=== PATIENT | female | born 2005 ===

== ENCOUNTER 2024-08-22 15:31 | Outpatient (AMB) | payer OTHER, SELFPAY ==
--- NOTE | 2024-08-22 15:36 | A.OFFPC_ITS ---
Vital Signs 08/22/24 15:42 Height 5 ft 3.19 in Weight 128 lb BMI 22.5 BP 88/50 L Blood Pressure Location Rt brachial Position Sitting Respiration 12 Pulse 60 Pulse Source Pulse Oximeter Pulse Oximetry (%) 98 Oxygen Delivery Method Room Air Intake Visit Reasons: est care Intake Note: New patient visit Allergies No Known Allergies Allergy (Verified 08/22/24 15:36) Tobacco use date assessed: 08/22/24 Dental Screening Dental Screen Date: 08/22/24 Did you have a dental visit in the last 12 months?: No Did you have a dental problem in the last 6 months where you did not have access to dental care?: No Was dental information given to patient?: Patient declined HPI HPI Comments History of Present Illness Details This is a 19-year-old female with a past medical history of mild intermittent asthma presenting to [facility]. 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 Records transfer pending. The patient tested positive for chlamydia at her school. She is on doxycycline. She is compliant with the medication. She requests to be retested after she completes the medication. She is agreeable to fasting labs. She plays basketball and volleyball. She has somewhat of a picky eater so I have recommended she start taking a multivitamin. We also discussed different ways to incorporate fruits and vegetables into her diet. Her asthma has not bothered her for awhile, but she would like a refill on her albuterol inhaler to keep on hand just in case. Influenza vaccine administered today. She is unsure about last tetanus vaccine so we are awaiting her transfer records. 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 [facility]. She has mild astigmatism and was prescribed glasses for it. ROS: Constitutional: No unexplained weight loss, fever, chills, fatigue or night sweats. Eyes: No vision changes, blurry vision, double vision, eye pain, eye redness, eye discharge. ENT: No hearing loss, sneezing, congestion, runny nose or sore throat. Respiratory: No shortness of breath, cough or sputum production. Cardiovascular: No chest pain, chest pressure or chest discomfort. No palpitations or pedal edema. Gastrointestinal: No anorexia, nausea, vomiting or diarrhea. No abdominal pain or blood in stool. Genitourinary: No dysuria, hematuria, urinary frequency. Neurologic: No headache, dizziness, syncope, unilateral weakness, ataxia, numbness or tingling in the extremities. Musculoskeletal: No muscle pain, back pain, joint pain or swelling. Hematologic/Lymphatics: No bleeding or bruising. No painful lymph nodes. Skin: No rash or itching. Endocrine: No cold or heat intolerance. No polyuria or polydipsia. Psychiatric: No depression or anxiety. No SI/HI. Physical exam: Constitutional: Alert, in no distress. Head: Normocephalic. Eyes: Pupils are equal, round and reactive to light. Extraocular muscles intact. Ear, Nose and Throat: Canals clear. TMs normal. Normal nasal mucosa. No nasal discharge. No oral lesions. Neck: Supple, Full range of motion. No lymphadenopathy. No palpable thyroid masses. Respiratory: Clear to auscultation. Cardiovascular: S1 S2 regular. No murmurs. . Gastrointestinal: Abdomen soft, non-tender, non-distended. Normal bowel sounds. No palpable masses. Genitourinary: No costovertebral angle tenderness. Neurologic: No focal neurological deficits. Symmetric patellar reflexes. Moves all extremities spontaneously. Sensation intact bilaterally. Skin: No rashes or lesions. Musculoskeletal: No gross deformities. Normal range of motion. Extremities: Warm and well perfused. No clubbing, cyanosis or edema. 3+ peripheral pulses bilaterally. Psychiatric: Normal mood and affect [facility] Medical History (Updated 08/22/24 @ 17:14 by MALIK Read) History of chlamydia Mild intermittent asthma Routine physical examination Surgical History (Updated 08/22/24 @ 15:40 by Sowmya Vaughan CMA) No pertinent past surgical history Family History (Updated 08/22/24 @ 15:41 by Sowmya Vaughan CMA) Father Depression Obesity Mother Obesity HTN (hypertension) Diabetes Other FH: mental illness Social History (Updated 08/22/24 @ 15:42 by Sowmya Vaughan CMA) Housing: Apartment Alcohol intake: current Patient Tobacco Use Status: Never used Tobacco e-Cigarette/Vaping Use: Never Used Second Hand Smoke Exposure: No Substance Use Type: Marijuana service: No Current occupational status: employed and student 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 1. Little interest or pleasure in doing things: more than half the days 2. Feeling down, depressed, or hopeless: several days 3. Trouble falling or staying asleep, or sleeping too much: several days 4. Feeling tired or having little energy: not at all 5. Poor appetite or overeating: several days 6. Feeling bad about yourself - or that you are a failure or have let yourself or your family down: not at all 7. Trouble concentrating on things, such as reading the newspaper or watching television: not at all 8. Moving or speaking so slowly that other people could have noticed. Or the opposite - being so fidgety or restless that you have been moving around a lot more than usual: not at all 9. Thoughts that you would be better off or of hurting yourself in some way: not at all Total score: 5 Depression Screening Interpretation: Positive Depression Screening Done: Yes 05789 - PHQ-9 Billing: Yes Source: Developed by Drs. Mono Coto, Flaca Cheng, Oniel Becker and colleagues, with an educational mawxell from [employer]. Thrive Questionnaire Date Thrive assessed: 08/22/24 I am a: Patient What is your living situation today?: I have a steady place to live Within the past 12 months, did the food you bought not last and you didn't have the money to get more?: I choose not to answer this question Within the past 12 months, did you worry whether your food would run out before you got money to buy more?: I choose not to answer this question Do you have trouble paying for medicines?: I choose not to answer this question Do you have trouble getting transportation to medical appointments?: No Do you have trouble paying your heating and electricity bill?: No Do you have trouble taking care of your child, family member or friend?: No Do you have trouble with day-to-day activities such as bathing, preparing meals, shopping, managing finances, etc.?: No Are you currently unemployed and looking for a job?: I choose not to answer this question Are you interested in more education?: Yes Please select the resources that you would like help with: Housing/Care Home, Food, Job search/training and Education Currently or been in a relationship where the following occur: No concerns reported THRIVE Score: 0 AUDIT C Alcohol Use Questionnaire (AUDIT-C) 1. How often do you have a drink containing alcohol?: Monthly or less 2. How many drinks containing alcohol do you have on a typical day when you are drinking?: 3 or 4 3. How often do you have six or more drinks on one occasion?: Never Total Score: 2 TAYA-7 AMB Questionnaire TAYA-7 Date TAYA - 7 assessed: 08/22/24 Feeling nervous, anxious, or on edge: 1 = Several days Not being able to stop or control worryin = Not at all Worrying too much about different things: 0 = Not at all Trouble relaxin = Not at all Being so restless that it is hard to sit still: 0 = Not at all Becoming easily annoyed or irritable: 0 = Not at all Feeling afraid as if something awful might happen: 0 = Not at all Total TAYA-7 score (0-4 normal; 5-9 mild; 10-14 moderate; 15-21 severe): 1 Source: Developed by Drs. Mono Coto, Flaca Cheng, Oniel Becker and colleagues, with an educational maxwell from [employer]. TAYA-7 Assessment Billing TAYA-7 Assessment Tool: TAYA-7 Assessment 86430 Physical exam (Primary Care) Vital Signs: Last Vital Signs Pulse 60 08/22/24 15:42 Resp 12 08/22/24 15:42 BP 88/50 L 08/22/24 15:42 Pulse Ox 98 08/22/24 15:42 Oxygen Delivery Method Room Air 08/22/24 15:42 BMI result Body Mass Index 22.5 Tobacco/Smoking Status: Tobacco use Status Tobacco use date assessed 08/22/24 08/22/24 15:44 Patient Tobacco Use Status Never used Tobacco 08/22/24 15:44 e-Cigarette/Vaping Use Never Used 08/22/24 15:44 PHQ-9: PHQ-9 Score PHQ-9: Total score 5 08/22/24 16:42 Depression Screening Interpretation: Positive Thrive Assessment: Date of Thrive Assessment Date Thrive assessed 08/22/24 08/22/24 15:44 Currently or been in a relationship where the following occur: No concerns reported Office Procedures Flu Questionnaire Does the patient have a severe egg allergy?: No Does the patient have severe life threatening allergies?: No Does the patient have a fever or illness today?: No Has the patient ever had Guillain-Randolph Syndrome?: No Has the patient ever had any past reaction to a flu shot?: No Immunizations Fluarix Triv 3633-0041 (PF) 45 mcg (15 mcg x 3)/0.5 mL IM syringe Performing Provider: MALIK Read Performing Location: [facility] Administered by: Sowmya Vaughan CMA on 08/22/24 16:40 Dose Route Admin Location Dispensed Lot Number Expiration Date NDC Gatekeeper 0.5 mL IM Left Deltoid 0.5 mL [id number] 01/16/25 34513-067-40 [employer] VIS Given Date VIS Provided VIS Publication Date 08/22/24 Single Vaccine 21 Eligibility Eligibility Date Funding Source Not [facility] Eligible 08/22/24 Private Coding Level of Care Code New Pt Prev Care 18-39yr(46224 Diagnoses Routine physical examination Z00.00 Mild intermittent asthma J45.20 History of chlamydia Z86.19 Additional Codes TAYA-7 Assessment Billing - TAYA-7 Assessment Tool: TAYA-7 Assessment 83575 ([id number]) PHQ-9 - 71042 - PHQ-9 Billing: Yes ([id number]) Assessment & Plan Assessment & Plan (1) Routine physical examination: Code(s): Z00.00 - Encounter for general adult medical examination without abnormal findings Category: Medical Plan: Patient is seen today for a routine physical. As part of this visit we reviewed the following issues, which are considered and essential part of preventative health in this age group: - Breast Cancer screening - Annual Moulder Operator exam - Blood pressure screening - Cholesterol screening - Osteoporosis prevention including calcium/vitamin D intake, weight bearing exercise & smoking cessation - Nutritional and exercise counseling - Counseling of injury prevention including fire prevention, smoke alarms and seat belt usage - Screening for depression - Prevention of and/or testing for infectious diseases - Education about skin cancer - Recommendations about immunizations - Recommendation of an eye exam - Screening for substance abuse (2) Mild intermittent asthma: Code(s): J45.20 - Mild intermittent asthma, uncomplicated Category: Medical Plan: Albuterol 2 puffs every 4 hours as needed for coughing, wheezing and shortness of breath. (3) History of chlamydia: Code(s): Z86.19 - Personal history of other infectious and parasitic diseases Category: Medical Plan: Complete treatment with doxycycline. Ordered repeat testing. She is agreeable to testing for additional STIs including HIV screening. Plan Follow up in 1 year for annual physical exam. Orders: Orders Influenza [id number] Immunization Today Z23 - Encounter for immunization Complete Blood Count no Diff Today J45.20 - Mild intermittent asthma, uncomplicated, Z00.00 - Encounter for general adult medical examination without abnormal findings Lipid Panel Today E78.5 - Hyperlipidemia, unspecified, J45.20 - Mild intermittent asthma, uncomplicated, Z00.00 - Encounter for general adult medical examination without abnormal findings Hepatitis C Antibody Today J45.20 - Mild intermittent asthma, uncomplicated, Z00.00 - Encounter for general adult medical examination without abnormal findings, Z20.2 - Contact with and (suspected) exposure to infections with a predominantly sexual mode of transmission Comprehensive Met. Panel Today J45.20 - Mild intermittent asthma, uncomplicated, Z00.00 - Encounter for general adult medical examination without abnormal findings HIV Ab/Ag Today J45.20 - Mild intermittent asthma, uncomplicated, Z00.00 - Encounter for general adult medical examination without abnormal findings, Z20.2 - Contact with and (suspected) exposure to infections with a predominantly sexual mode of transmission CT NG by PCR Today J45.20 - Mild intermittent asthma, uncomplicated, Z00.00 - Encounter for general adult medical examination without abnormal findings, Z20.2 - Contact with and (suspected) exposure to infections with a predominantly sexual mode of transmission Syphilis Screen Today J45.20 - Mild intermittent asthma, uncomplicated, Z00.00 - Encounter for general adult medical examination without abnormal findings, Z20.2 - Contact with and (suspected) exposure to infections with a predominantly sexual mode of transmission Medications: New albuterol sulfate 90 mcg/actuation 2 inhalations inhalation .every 4 hours 30 days PRN 8.5 grams 1RF shortness of breath or wheezing
[2024-08-22 15:42] VITALS: BP 88/50; PULSE 60; RESP 12; O2SAT 98; BMI 22.5
== END 2024-08-22 16:40 | disposition home or self-care (01) ==
PROVIDERS: PCP Physician Assistant Medical; Visit Provider Physician Assistant Medical
DX: Z00.00 Encounter for general adult medical examination without abnormal findings (principal); J45.20 Mild intermittent asthma, uncomplicated; Z86.19 Personal history of other infectious and parasitic diseases; Z23 Encounter for immunization

== ENCOUNTER → 2024-08-22 15:31 | Outpatient (BNVA) | payer OTHER, SELFPAY | PROVIDERS: PCP Physician Assistant Medical; Visit Provider Physician Assistant Medical | DX: Z00.00 Encounter for general adult medical examination without abnormal findings (principal); Z23 Encounter for immunization; J45.20 Mild intermittent asthma, uncomplicated; Z86.19 Personal history of other infectious and parasitic diseases | CPT/HCPCS: 90471; 90656; 96127; 99385 ==

== ENCOUNTER 2024-09-20 15:11 | Outpatient (REF) | payer OTHER, SELFPAY ==
[2024-09-20 18:53] LABS: Alanine Aminotransferase 18 U/L (0-31); Albumin Level 4.5 g/dL (3.5-5.0); Alkaline Phosphatase 74 U/L (39-117); Anion Gap 11 (12-20); Aspartate Amino Transferase 26 U/L (5-31); Bilirubin Total 0.7 mg/dL (0.0-1.0); Blood Urea Nitrogen 8 mg/dL (9-16); Calcium 8.9 mg/dL (8.4-10.2); Carbon Dioxide 26 mmol/L (22-29); Chloride 107 mmol/L (96-108); Cholesterol 133 mg/dL (<200); Estimated Glomerular Filt Rate > 60; Glucose Random 89 mg/dL (60-115); HDL Cholesterol 47 mg/dL (>40); LDL Cholesterol Calculated 76 mg/dL (<100); Potassium 3.5 mmol/L (3.3-5.1); Sodium 140 mmol/L (135-145); Total Protein 7.7 g/dL (6.5-8.0); Triglycerides 52 mg/dL (<150)
[2024-09-20 18:55] LABS: Hematocrit 39.5 % (37.0-47.0); Hemoglobin 13.2 g/dl (12.0-16.0); Mean Corpuscular HGB Conc 33.4 g/dl (31.0-35.0); Mean Corpuscular Hemoglobin 30.3 pg (27.0-33.0); Mean Corpuscular Volume 90.8 fL (80.0-98.0); Mean Platelet Volume 11.4 fL (9.4-12.3); Platelet Count 228 X10*3/uL (160-400); Red Blood Count 4.35 X10*6/uL (4.20-5.50); Red Cell Distribution Width 12.8 % (11.0-16.0); White Blood Count 4.8 X10*3/uL (4.8-10.8)
[2024-09-21 08:09] LABS: Syphilis Screen Nonreactive (Nonreactive)
[2024-09-21 08:30] LABS: HIV AB/AG Nonreactive (Nonreactive); HIV Num 1 0.06 S/CO (0.00-0.99); ~HepC Num1 0.14 S/CO (0.00-0.79); ~Hepatitis C Antibody Nonreactive (Nonreactive)
== END 2024-09-20 15:12 | disposition home or self-care (01) ==
LOC: HO.WFDLDS 15:11
PROVIDERS: Visit Provider Physician Assistant Medical
DX: Z00.00 Encounter for general adult medical examination without abnormal findings (principal); J45.20 Mild intermittent asthma, uncomplicated; Z20.2 Contact with and (suspected) exposure to infections with a predominantly sexual mode of transmission; E78.5 Hyperlipidemia, unspecified
CPT/HCPCS: 36415; 80053; 80061; 85027; 86780; 86803; 87389

== ENCOUNTER 2024-10-10 13:41 | Outpatient (AMB) | payer OTHER, SELFPAY ==
--- NOTE | 2024-10-10 13:49 | MHC.PC.OV ---
Vital Signs 10/10/24 13:51 Height 5 ft 3.19 in Weight 130 lb BMI 22.9 BP 116/76 Blood Pressure Location Rt brachial Position Sitting Respiration 12 Pulse 63 Pulse Source Pulse Oximeter Temp 98.7 F Temp Source Oral Pulse Oximetry (%) 98 Oxygen Delivery Method Room Air Intake Visit Reasons: UPPER LIP ISSUE Intake Note: Upper lip issue, started about a week ago. Second Cook And Baker Required: No Allergies No Known Allergies Allergy (Verified 10/10/24 13:51) Tobacco use date assessed: 08/22/24 Dental Screening Dental Screen Date: 08/22/24 HPI HPI Comments History of Present Illness Details This is a 19-year-old female presenting for a lip problem. A week ago patient developed a tingly, stinging blister above her left lip. 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 She found out the results this past Thursday. Her partner recently also had a cold sore. [facility] said they would send medication to her pharmacy, but she never received it which prompted her to come here. She had testing for other STIs which were negative including testing for HSV 2. Patient got I smaller blister next to this yesterday. No fevers or chills. Denies genital lesions. ROS: Constitutional: No fevers or chills ENT: No hearing loss, sneezing, congestion, runny nose or sore throat. Genitourinary: No dysuria, hematuria, urinary frequency. No genital lesions. Skin: See HPI Physical exam: Constitutional: Alert, in no distress. Mouth/ Throat: No lesions within the mouth or throat. There is a crusty, vesicular, erythematous lesion above the left lip involving the vermilion border Neck: Supple, Full range of motion. No lymphadenopathy. [facility] Medical History (Updated 10/10/24 @ 14:16 by MALIK Read) HSV-1 infection History of chlamydia Mild intermittent asthma Routine physical examination Surgical History (Updated 08/22/24 @ 15:40 by Sowmya Vaughan CMA) No pertinent past surgical history Family History Father Depression Obesity Mother Obesity HTN (hypertension) Diabetes Other FH: mental illness Social History (Updated 08/22/24 @ 15:42 by Sowmya Vaughan CMA) Housing: Apartment Alcohol intake: current Patient Tobacco Use Status: Never used Tobacco e-Cigarette/Vaping Use: Never Used Second Hand Smoke Exposure: No Substance Use Type: Marijuana service: No Current occupational status: employed and student 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 [employer] Current occupational exposures/hazards: No Cognitive needs: No Hearing needs: No Vision needs: No Questionnaire Thrive Questionnaire Date Thrive assessed: 08/22/24 I am a: Patient What is your living situation today?: I have a steady place to live Within the past 12 months, did the food you bought not last and you didn't have the money to get more?: I choose not to answer this question Within the past 12 months, did you worry whether your food would run out before you got money to buy more?: I choose not to answer this question Do you have trouble paying for medicines?: I choose not to answer this question Do you have trouble getting transportation to medical appointments?: No Do you have trouble paying your heating and electricity bill?: No Do you have trouble taking care of your child, family member or friend?: No Do you have trouble with day-to-day activities such as bathing, preparing meals, shopping, managing finances, etc.?: No Are you currently unemployed and looking for a job?: I choose not to answer this question Are you interested in more education?: Yes Currently or been in a relationship where the following occur: No concerns reported THRIVE Score: 0 TAYA-7 AMB Questionnaire TAYA-7 Date TAYA - 7 assessed: 08/22/24 Source: Developed by Drs. Mono Coto, Flaca Cheng, Oniel Becker and colleagues, with an educational maxwell from [employer]. Physical exam (Primary Care) Tobacco/Smoking Status: Tobacco use Status Tobacco use date assessed 08/22/24 08/22/24 15:44 Patient Tobacco Use Status Never used Tobacco 08/22/24 15:44 e-Cigarette/Vaping Use Never Used 08/22/24 15:44 Thrive Assessment: Date of Thrive Assessment Date Thrive assessed 08/22/24 08/22/24 15:44 Currently or been in a relationship where the following occur: No concerns reported Coding Level of Care Code Est Pt Level 3 (15738) Complex EM visit Add On G2211 Diagnoses HSV-1 infection B00.9 Assessment & Plan Assessment & Plan (1) HSV-1 infection: Code(s): B00.9 - Herpesviral infection, unspecified Category: Medical Plan Patient educated on herpes simplex virus, transmission and outbreaks. Prescribed Valtrex. Advised patient I will put additional doses into the bottle to use for recurrent outbreaks. If she has frequent outbreaks we can also prescribed Valtrex for suppression. Reviewed management of HSV 1 and prevention of transmission. She will call if she has any questions or concerns. Medications: New valacyclovir (Valtrex) 2,000 mg (2 x 1 gram) PO Q12H 1 day PRN 20 tabs 0RF cold sore
[2024-10-10 13:51] VITALS: BP 116/76; PULSE 63; RESP 12; TEMP 37.1; O2SAT 98; BMI 22.9
== END 2024-10-10 14:20 | disposition home or self-care (01) ==
LOC: HO.HMCFM 13:41
PROVIDERS: PCP Physician Assistant Medical; Visit Provider Physician Assistant Medical
DX: B00.9 Herpesviral infection, unspecified (principal)

== ENCOUNTER → 2024-10-10 13:41 | Outpatient (BNVA) | payer OTHER, SELFPAY | PROVIDERS: PCP Physician Assistant Medical; Visit Provider Physician Assistant Medical | DX: B00.9 Herpesviral infection, unspecified (principal) | CPT/HCPCS: 99212 ==

== ENCOUNTER 2024-12-01 09:03 | Outpatient (REF) | payer OTHER, SELFPAY ==
[2024-12-01 14:20] LABS: MANUAL DIFF FLAG NO
[2024-12-01 14:29] LABS: Basophils Percent Auto 0.4 % (0-2); Eosinophils Absolute Auto 0.1 X10*3/uL (0.0-0.4); Eosinophils Percent Auto 1.7 % (0-4); Hematocrit 38.8 % (37.0-47.0); Imm Gran Abs Auto 0.01 X10*3/uL (0.00-0.03); Imm Gran Pct Auto 0.2 % (0.0-0.4); Lymphocytes Absolute Auto 1.1 X10*3/uL (1.2-4.9); Lymphocytes Percent Auto 22.8 % (20-40); Mean Corpuscular HGB Conc 33.5 g/dl (31.0-35.0); Mean Corpuscular Volume 89.6 fL (80.0-98.0); Mean Platelet Volume 11.8 fL (9.4-12.3); Monocytes Absolute Auto 0.5 X10*3/uL (0.1-1.2); Monocytes Percent Auto 10.9 % (2-11); Neutrophils Absolute Auto 2.9 x10*3/uL (2.0-8.3); Platelet Count 195 X10*3/uL (160-400); Red Blood Count 4.33 X10*6/uL (4.20-5.50); Red Cell Distribution Width 13.3 % (11.0-16.0); White Blood Count 4.6 X10*3/uL (4.8-10.8)
[2024-12-01 14:56] LABS: Syphilis Screen Nonreactive (Nonreactive)
[2024-12-01 14:59] LABS: HCG Quantitative < 2 mIU/mL
[2024-12-02 08:46] LABS: HIV AB/AG Nonreactive (Nonreactive); HIV Num 1 0.08 S/CO (0.00-0.99); ~HepC Num1 0.11 S/CO (0.00-0.79); ~Hepatitis C Antibody Nonreactive (Nonreactive)
== END 2024-12-01 09:04 | disposition home or self-care (01) ==
LOC: HO.LAB 09:03
PROVIDERS: PCP Physician Assistant Medical; Visit Provider Physician Assistant Medical
DX: N92.0 Excessive and frequent menstruation with regular cycle (principal); R10.2 Pelvic and perineal pain; R39.9 Unspecified symptoms and signs involving the genitourinary system; Z20.2 Contact with and (suspected) exposure to infections with a predominantly sexual mode of transmission
CPT/HCPCS: 36415; 81002; 81025; 84702; 85025; 86780; 86803; 87086; 87389; 96127; 99212

== ENCOUNTER 2024-12-01 09:03 | Outpatient (AMB) | payer OTHER, SELFPAY ==
--- NOTE | 2024-12-01 09:07 | A.OFFPC_ITS ---
Vital Signs 12/01/24 09:14 Height 5 ft 4 in Weight 125 lb 4 oz BMI 21.5 BP 102/68 Blood Pressure Location Lt brachial Position Sitting Pulse 61 Pulse Source Pulse Oximeter Temp 98.4 F Temp Source Temporal Artery Scan Pulse Oximetry (%) 97 Oxygen Delivery Method Room Air Intake Visit Reasons: abdominal pain Intake Note: Dionisio presents in the office today for abdominal pain. Allergies No Known Allergies Allergy (Verified 12/01/24 09:09) Tobacco use date assessed: 12/01/24 Dental Screening Dental Screen Date: 12/01/24 Did you have a dental visit in the last 12 months?: No Did you have a dental problem in the last 6 months where you did not have access to dental care?: No Was dental information given to patient?: Patient has dentist HPI HPI Comments History of Present Illness Details 19-year-old female with past medical his tory of HSV, chlamydia, asthma presents for concerns about possible . The last day of her period ended 11/15/2024. It was shorter than usual at 4 days, and she says the bleeding was a little heavier. She had pinkish discharge on 11/16/2024 which was unusual for her. She also has intermittent pelvic cramping which is present today. She says it is mild. No vomiting, fevers, chills, nausea, dizziness or weakness. Last episode of unprotected intercourse was 11/23/2024. Patient says she is sexually active with 1 person. She has a cribber, but she has not reached out to them about the symptoms yet. She took home tests which were negative. Her depression screening is positive. Patient says she had stress due to the situation with her partner. She has started seeing a therapist. ROS: Constitutional: No unexplained weight loss, fever, chills or night sweats. Respiratory: No shortness of breath Cardiovascular: No chest pain Gastrointestinal: No anorexia, nausea, vomiting or diarrhea. No abdominal pain or blood in stool. : No dysuria, hematuria, urinary frequency, flank pain, vaginal discharge or itching. See HPI. Neurologic: No headache, dizziness, syncope Skin: No rash Physical exam: Constitutional: Alert, in no distress. Neck: Supple, Full range of motion. No lymphadenopathy. Respiratory: Clear to auscultation. Cardiovascular: S1 S2 regular. No murmurs. Gastrointestinal: Abdomen soft, non-tender, non-distended. Normal bowel sounds. No palpable masses. Genitourinary: No costovertebral angle tenderness. Extremities: Warm and well perfused. No clubbing, cyanosis or edema. Psychiatric: Normal mood and affect [facility] Medical History (Updated 12/01/24 @ 09:29 by MALIK Read) Pelvic cramping Spotting HSV-1 infection History of chlamydia Mild intermittent asthma Routine physical examination Surgical History No pertinent past surgical history Family History Father Depression Obesity Mother Obesity HTN (hypertension) Diabetes Other FH: mental illness Social History (Updated 12/01/24 @ 09:09 by Rose Marie Silva MA) Housing: Apartment Alcohol intake: current Patient Tobacco Use Status: Never used Tobacco e-Cigarette/Vaping Use: Never Used Second Hand Smoke Exposure: No Substance Use Type: Marijuana service: No Current occupational status: employed and student 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 Current occupational exposures/hazards: No Cognitive needs: No Hearing needs: No Vision needs: No Questionnaire PHQ-9 Over the last 2 weeks, how often have you been bothered by any of the following problems? 1. Little interest or pleasure in doing things: several days 2. Feeling down, depressed, or hopeless: not at all 3. Trouble falling or staying asleep, or sleeping too much: several days 4. Feeling tired or having little energy: several days 5. Poor appetite or overeating: not at all 6. Feeling bad about yourself - or that you are a failure or have let yourself or your family down: not at all 7. Trouble concentrating on things, such as reading the newspaper or watching television: nearly every day 8. Moving or speaking so slowly that other people could have noticed. Or the opposite - being so fidgety or restless that you have been moving around a lot m ore than usual: not at all 9. Thoughts that you would be better off or of hurting yourself in some way: not at all Total score: 6 Depression Screening Interpretation: Positive Depression Screening Done: Yes 22023 - PHQ-9 Billing: Yes Source: Developed by Drs. Mono Coto, Flaca Cheng, Oniel Becker and colleagues, with an educational maxwell from [employer]. Thrive Questionnaire Date Thrive assessed: 12/01/24 I am a: Patient What is your living situation today?: I have a steady place to live Within the past 12 months, did the food you bought not last and you didn't have the money to get more?: I choose not to answer this question Within the past 12 months, did you worry whether your food would run out before you got money to buy more?: I choose not to answer this question Do you have trouble paying for medicines?: I choose not to answer this question Do you have trouble getting transportation to medical appointments?: No Do you have trouble paying your heating and electricity bill?: No Do you have trouble taking care of your child, family member or friend?: No Do you have trouble with day-to-day activities such as bathing, preparing meals, shopping, managing finances, etc.?: No Are you currently unemployed and looking for a job?: I choose not to answer this question Are you interested in more education?: Yes Currently or been in a relationship where the following occur: No concerns reported THRIVE Score: 0 AUDIT C Alcohol Use Questionnaire (AUDIT-C) 1. How often do you have a drink containing alcohol?: Monthly or less 2. How many drinks containing alcohol do you have on a typical day when you are drinking?: 3 or 4 3. How often do you have six or more drinks on one occasion?: Never Total Score: 2 Score Reviewed/Action Taken: No TAYA-7 AMB Questionnaire TAYA-7 Date TAYA - 7 assessed: 12/01/24 Feeling nervous, anxious, or on edge: 1 = Several days Not being able to stop or control worryin = Not at all Worrying too much about different things: 3 = Nearly every day Trouble relaxin = Several days Being so restless that it is hard to sit still: 0 = Not at all Becoming easily annoyed or irritable: 3 = Nearly every day Feeling afraid as if something awful might happen: 0 = Not at all Total TAYA-7 score (0-4 normal; 5-9 mild; 10-14 moderate; 15-21 severe): 8 Source: Developed by Drs. Mono Coto, Flaca Cheng, Oniel Becker and colleagues, with an educational maxwell from [employer]. TAYA-7 Assessment Billing TAYA-7 Assessment Tool: TAYA-7 Assessment 52277 Physical exam (Primary Care) Vital Signs: Last Vital Signs Temp 98.4 F 12/01/24 09:14 Pulse 61 12/01/24 09:14 BP 102/68 12/01/24 09:14 Pulse Ox 97 12/01/24 09:14 Oxygen Delivery Method Room Air 12/01/24 09:14 BMI result Body Mass Index 21.5 Tobacco/Smoking Status: Tobacco use Status Tobacco use date assessed 12/01/24 12/01/24 09:10 Patient Tobacco Use Status Never used Tobacco 12/01/24 09:10 e-Cigarette/Vaping Use Never Used 12/01/24 09:10 PHQ-9: PHQ-9 Score PHQ-9: Total score 6 12/01/24 09:15 Depression Screening Interpretation: Positive Thrive Assessment: Date of Thrive Assessment Date Thrive assessed 12/01/24 12/01/24 09:15 Currently or been in a relationship where the following occur: No concerns reported Results AMB Test Urine AMB Test Urine Negative Last Edit by Rose Marie Silva MA on 10:00 AMB Urinalysis Dipstick UR Leukocytes Negative Last Edit by Rose Marie Silva MA on 12/01/24 10:02 UR Nitrite Negative Last Edit by Rose Marie Silva MA on 12/01/24 10:02 UR Urobilinogen Normal Last Edit by Rose Marie Silva MA on 12/01/24 10:02 UR Protein Negative Last Edit by Rose Marie Silva MA on 12/01/24 10:02 UR Ph 6.0 Last Edit by Rose Marie Silva MA on 12/01/24 10:02 UR Blood Last Edit by Rose Marie Silva MA on 12/01/24 10:02 UR Specific [place] 1.025 Last Edit by Rose Marie Silva MA on 12/01/24 10:02 UR Ketone Negative Last Edit by Rose Marie Silva MA on 12/01/24 10:02 UR Bilirubin Negative Last Edit by Rose Marie Silva MA on 12/01/24 10:02 UR Glucose Negative Last Edit by Rose Marie Silva MA on 12/01/24 10:02 Results Reviewed Results Reviewed: Laboratory Last Values Urine pH (Clinic) 6.0 12/01/24 10:00 Specific [place] (Clinic) 1.025 12/01/24 10:00 Ur Protein (Clinic) Negative 12/01/24 10:00 Ur Ketones (Clinic) Negative 12/01/24 10:00 Urine Nitrite Negative 12/01/24 10:00 Urine Bilirubin (Clinic) Negative 12/01/24 10:00 Urobilinogen (Clinic) Normal 12/01/24 10:00 Leukocyte Esterase (Clinic) Negative 12/01/24 10:00 Urine Glucose (Clinic) Negative 12/01/24 10:00 Tst Clinic Negative 12/01/24 09:59 Coding Level of Care Code Est Pt Level 3 (13104) Complex EM visit Add On G2211 Diagnoses Spotting N92.0 Pelvic cramping R10.2 Additional Codes TAYA-7 Assessment Billing - TAYA-7 Assessment Tool: TAYA-7 Assessment 92977 ([id number]) PHQ-9 - 66292 - PHQ-9 Billing: Yes ([id number]) Assessment & Plan Assessment & Plan (1) Spotting: Code(s): N92.0 - Excessive and frequent menstruation with regular cycle Category: Medical (2) Pelvic cramping: Code(s): R10.2 - Pelvic and perineal pain Category: Medical Plan: Urine test is negative. Serum HCG will be collected today including screenings for STIs and urine for gonorrhea and chlamydia. Ordered urine culture. Urine dip today is not consistent with UTI. Advised patient to contact her cribber today for evaluation of symptoms. Warning signs warranting ER evaluation reviewed. Counseled patient on risks of unprotected sex including STI and undesired . She was on control but stopped it, and she is not interested in going back on contraception. Encouraged her to discuss further with Gynecology. Plan Follow up based on test results. Orders: Orders AMB Urinalysis Dipstick Today N92.0 - Excessive and frequent menstruation with regular cycle, Z13.9 - Encounter for screening, unspecified AMB HCG Urine Test Today N92.0 - Excessive and frequent menstruation with regular cycle Complete Blood Count Auto Diff Today N92.0 - Excessive and frequent menstruation with regular cycle HIV Ab/Ag Today N92.0 - Excessive and frequent menstruation with regular cycle, Z20.2 - Contact with and (suspected) exposure to infections with a predominantly sexual mode of transmission CT NG by PCR Today N92.0 - Excessive and frequent menstruation with regular cycle, Z20.2 - Contact with and (suspected) exposure to infections with a predominantly sexual mode of transmission HCG Quantitative Today N92.0 - Excessive and frequent menstruation with regular cycle Hepatitis C Antibody Today N92.0 - Excessive and frequent menstruation with regular cycle, Z20.2 - Contact with and (suspected) exposure to infections with a predominantly sexual mode of transmission Syphilis Screen Today N92.0 - Excessive and frequent menstruation with regular cycle, Z20.2 - Contact with and (suspected) exposure to infections with a predominantly sexual mode of transmission Urine Culture Today R39.9 - Unspecified symptoms and signs involving the genitourinary system UA w Microscopic Today R39.9 - Unspecified symptoms and signs involving the genitourinary system
[2024-12-01 09:14] VITALS: BP 102/68; PULSE 61; TEMP 36.9; O2SAT 97; BMI 21.5
== END 2024-12-01 09:55 | disposition home or self-care (01) ==
LOC: HO.HMCFM 09:04
PROVIDERS: PCP Physician Assistant Medical; Visit Provider Physician Assistant Medical
DX: N92.0 Excessive and frequent menstruation with regular cycle (principal); R10.2 Pelvic and perineal pain; Z13.9 Encounter for screening, unspecified

== ENCOUNTER 2024-12-01 11:18 | Outpatient (REF) | payer OTHER, SELFPAY | END 2024-12-01 11:19 | disposition home or self-care (01) | LOC: HO.WFDLDS 11:18 | PROVIDERS: Visit Provider Physician Assistant Medical | DX: Z13.89 Encounter for screening for other disorder (principal) ==